=== PATIENT | male | born 1960 | race African-American/Black ===

== ENCOUNTER → 2019-01-20 | Outpatient (CLI) | payer MEDICAID, SELFPAY ==
[2019-01-20 09:59] VITALS: BMI 40.0
--- NOTE | 2019-01-20 10:05 | RAD_ITS ---
STUDY: X-RAY CHEST REASON FOR EXAM: Male, 58 years old. Cough. Recent bronchitis. TECHNIQUE: PA and lateral views of the chest. COMPARISON: None. FINDINGS: The lungs are clear and expanded. There is no demonstrated pleural abnormality. Normal size heart. Normal mediastinum and saji. Normal visualized pulmonary arteries. Normal visualized aortic arch and descending thoracic aorta. There are mild degenerative changes of the visualized thoracic spine. Normal visualized ribs, clavicles, and shoulders. There is no demonstrated abnormality of the visualized soft tissue structures of the upper abdomen. RAD/Chest PA and Lateral IMPRESSION: Normal x-ray examination of the chest. Electronically Signed: Stefan Deal, at 10:40 EDT , Service support ,
== END | disposition home or self-care (01) ==
PROVIDERS: Family Provider Family Medicine; PCP Family Medicine; Referring Provider Physician Assistant Surgical; Visit Provider Physician Assistant Surgical
DX: J02.9 Acute pharyngitis, unspecified (principal); J45.901 Unspecified asthma with (acute) exacerbation; J40 Bronchitis, not specified as acute or chronic
CPT/HCPCS: 71046; 87081

== ENCOUNTER 2021-11-13 12:42 | Emergency (ER) | payer MEDICAID, SELFPAY ==
[2021-11-13 12:43] VITALS: BP 162/82; PULSE 65; RESP 21; TEMP 36.2; O2SAT 99; BMI 39.2
--- NOTE | 2021-11-13 13:18 | EKG12_ITS ---
Test Reason : Blood Pressure : / mmHG Vent. Rate : 057 BPM Atrial Rate : 057 BPM P-R Int : 156 ms QRS Dur : 096 ms QT Int : 426 ms P-R-T Axes : 034 057 037 degrees QTc Int : 414 ms Sinus bradycardia with sinus arrhythmia Otherwise normal ECG Confirmed by ONI LINN, HARISH ([id number]), tape editor JOHANN THORNTON ([id number]) on 11/15/2021 10:38:03 AM Referred By: JEANNA Confirmed By:HARISH BUNN MD
--- NOTE | 2021-11-13 13:18 | RAD_ITS ---
STUDY: X-RAY CHEST REASON FOR EXAM: Male, 61 years old. chest pain TECHNIQUE: Single AP portable view of the chest. COMPARISON: 01/20/2019 FINDINGS: The lungs are clear and expanded. There is no demonstrated pleural abnormality. Normal size heart. Normal mediastinum and saji. Normal visualized pulmonary arteries. Normal visualized aortic arch and descending thoracic aorta. Normal visualized thoracic spine. Normal visualized ribs, clavicles, and shoulders. There is no demonstrated abnormality of the visualized soft tissue structures of the upper abdomen. RAD/Chest 1 View (Portable) IMPRESSION: Normal x-ray examination of the chest. Electronically Signed: Avi Crain MD at 14:31 EDT ,
[2021-11-13] MEDS: Aspirin 81 MG TAB.CHEW 324 MG PO (13:26)
[2021-11-13 13:32] VITALS: BP 123/98; PULSE 63
[2021-11-13] MEDS: Nitroglycerin SL (ED/IMG/CATH) 0.4 MG TABLET SL (13:32)
--- NOTE | 2021-11-13 13:33 | ED.RN ---
PT ACCIDENTALLY DROPPED 4 BABY ASA ON FLOOR. 4 NEW ASA PULLED AND GIVEN.
[2021-11-13 13:40] LABS: Absolute Lymphocyte Count 2.92 X10^3/uL (0.83-4.51); Absolute Neutrophil Count 2.4 X10^3/uL (2.0-7.7); Basophil# 0.03 X10^3/uL; Basophil% 0.5 % (0-1); Eosinophil# 0.06 X10^3/uL; Hematocrit 45.3 % (40-54); Lymphocyte # 2.92 X10^3/ul (0.83-4.51); Lymphocyte % 48.5 % (19-41); Mean Corp Hgb Conc 35.3 g/dL (32-36); Mean Corpuscular Hgb 30.7 pg (27.0-32.0); Mean Corpuscular Volume 86.8 fL (80-94); Mean Platelet Vol. 9.9 fl (6.2-12.0); Monocyte# 0.56 X10^3/uL; Monocyte% 9.3 % (0-10); NRBC Flagged by Analyzer 0 % (0-5); Neutrophil # 2.44 X10^3/uL (2.7-7.7); Neutrophil % 40.5 % (47-70); Platelet Count 206 K/mm3 (150-450); RBC Distribution Width CV 14.9 % (11.6-14.6); RBC Distribution Width SD 47.7 fl (35.1-43.9); Red Blood Count 5.22 M/mm3 (4.6-6.2)
[2021-11-13 14:00] LABS: Anion Gap 3 (5-15); BUN 12 mg/dL (7-18); BUN/Creat Ratio 11.2 RATIO (10-20); Calcium,Total 9.3 mg/dL (8.5-10.1); Chloride 107 mmol/L (98-107); Creatinine, Serum 1.07 mg/dL (0.70-1.30); EST Glomerular Filtration Rate 75 mL/min (>60); Est Glom Filt Rate - Afr Amer 91 mL/min (>60); Estimated Creatinine Clearance 67.08 ml/min; Glucose 82 mg/dL (74-106); Sodium Level 142 mmol/L (136-145); Troponin-I HS < 3 pg/mL (3.0-78.0)
[2021-11-13 14:13] VITALS: BP 122/95; PULSE 60; RESP 15; O2SAT 100
[2021-11-13] MEDS: Potassium Chloride Oral Tablet 20 MEQ 40 MEQ PO (14:38)
--- NOTE | 2021-11-13 14:48 | ED.VIS.CHEST ---
HPI History of Present Illness Chief Complaint: Chest Pain Informant: patient Onset/Context/Timing Onset: Days (2) Activity at onset: sudden Timing: Intermittent (Constant since this morning) Quality: Positive for Stabbing Location: Left Parasternal Worsened By: Movement of Torso Relieved By: Nothing Associated Symptoms: Positive for Palpitations; Negative for Nausea, Vomiting, Diaphoresis, Dyspnea, Cough, Fever, Lightheadedness and Acid Reflux Narrative Narrative: Patient presents with chest pain that began 2 days ago. Patient states it has been intermittent. Patient states it has been constant since this morning. Patient states the pain is over the left chest area. Patient describes it as stabbing. Patient states it is worse with certain movements. Patient admits to some palpitations. Patient denies any nausea or vomiting. Patient denies any shortness of breath. Patient denies any diaphoresis. Patient states nothing seems to help with his pain. CVD Risk Factors: Positive for Hypertension, Diabetes and Smoking; Negative for Hypercholesterolemia and Family History 1' </=55 PE Risk Factors: Negative for Recent Travel/Surgery, Recent Immobilization, Prior DVT or PE, Cancer and OCP + Smoking + >/=35 [facility] Medical History (Updated 11/13/21 @ 14:[address] Francisco Javier Villa, DO) Arthritis Asthma COPD (chronic obstructive pulmonary disease) Hypertension Pre-diabetes SOB (shortness of breath) Home Medications budesonide-formoterol 2 puff INHALATION BID 04/19/16 [History Last Taken Unknown] tiotropium bromide 1 puff INHALATION DAILY 04/19/16 [History Last Taken Unknown] albuterol sulfate 2.5 mg CONTINUOUS NEBULIZATION ONCE #1 ml 01/09/19 [Clinic Last Taken Unknown] albuterol sulfate 90 mcg/actuation aerosol inhaler 2 puff INHALATION Q6H PRN 01/09/19 [History Last Taken Unknown] amlodipine 5 mg tablet 5 mg PO DAILY 01/09/19 [History Last Taken Unknown] hydrochlorothiazide 25 mg tablet 25 mg PO DAILY 01/09/19 [History Last Taken Unknown] ibuprofen 800 mg tablet 800 mg PO Q6H PRN 01/09/19 [History Last Taken Unknown] metformin 500 mg tablet 500 mg PO BID 01/09/19 [History Last Taken Unknown] sertraline 50 mg tablet 50 mg PO DAILY 01/09/19 [History Last Taken Unknown] azithromycin 250 mg tablet See Rx Instructions PO .COMPLEX #6 tab 01/20/19 [Rx Last Taken Unknown] amoxicillin 500 mg tablet 500 mg PO BID #20 tab 03/12/21 [Rx Last Taken Unknown] Allergy/AdvReac Type Severity Reaction Status Date / Time No Known Allergies Allergy Verified 11/13/21 12:45 Family History Father Bone cancer Mother Arthritis Other Diabetes Hypertension Surgical History History of carpal tunnel release Social History Smoking Status: Current every day smoker tobacco type: cigarettes ROS ROS ED Constitutional Constitutional ED: Denies chills or fever(s) Eyes Eyes: Denies blurry vision or change in vision ENT ENT ED: Denies rhinorrhea or sore throat Cardiovascular Cardiovascular: Reports chest pain and palpitations Respiratory/Chest Respiratory/Chest: Denies cough or dyspnea Gastrointestinal Gastrointestinal: Denies abdominal pain or vomiting Genitourinary Genitourinary ED: Denies dysuria or hematuria Musculoskeletal Musculoskeletal: Reports back pain and neck pain Integumentary Denies abscess or rash Neurologic Neurologic: Denies headache(s) or weakness Allergic/Immunologic Allergic/Immunologic ED: Denies mouth swelling or urticaria EXAM Physical Exam Const Vital Signs: 11/13/21 12:43 11/13/21 12:46 11/13/21 13:32 Temperature 97.2 F L Temperature Source Temporal Pulse Rate 65 63 Respiratory Rate 21 H Respiratory Effort Normal Non-Labored Blood Pressure 162/82 H 123/98 H Blood Pressure Mean 108 Pulse Ox 99 Oxygen Delivery Method Room Air 11/13/21 14:13 Temperature Temperature Source Pulse Rate 60 Respiratory Rate 15 Respiratory Effort Blood Pressure 122/95 H Blood Pressure Mean 104 Pulse Ox 100 Oxygen Delivery Method Room Air Positive well nourished, well developed and obese General Appearance ED: well developed and NAD Nutritional Appearance: obese HEENT normocephalic and atraumatic Eyes PERRL and EOMs intact bilaterally Neck supple and no JVD Chest Wall palpation of chest normal Resp normal respiratory effort and clear to auscultation bilaterally Effort and Inspection: Negative for respiratory distress Cardio regular rate, regular rhythm and no murmurs GI normal to inspection, nondistended, normoactive bowel sounds, soft to palpation, non-tender and non-distended Extremity normal to inspection General Extremety ED: Negative for edema or tenderness General Extremity: Negative for edema Neuro oriented x3, CN's II-XII intact bilaterally and no sensory deficits noted Sensorium / Orientation: awake and alert Motor Exam: strength 5/5 throughout Psych mental status grossly normal Heart Score History: Slightly/Non-Suspicious ECG: Normal Age: >45 - <65 years Risk Factors: >/= 3 Risk Factors or History of CAD Troponin: </= Normal Limit Score: 3 MDM MDM MDM Narrative Medical decision making narrative: Patient was given aspirin here. EKG was obtained. On my interpretation, it showed a normal sinus rhythm with a rate of 57. [place] interval, QRS interval, and QTc intervals were all normal. [place] was normal. There are no acute ST or T wave changes. Portable 1 view chest x-ray was obtained. On my interpretation, lung yi are clear. There is normal cardiac silhouette. Bony thorax is normal. There is no acute process noted. Radiologist also interpreted the x-ray and agrees. Clear. CBC was within normal limits. Basic metabolic profile shows a mild hypokalemia of 3.0. Patient was given a dose of potassium here. High-sensitivity troponin was normal. Patient has a HEART score of 3. Patient was advised that this is low risk for acute cardiac event. Patient was instructed to follow-up with his primary care physician in 3 to 5 days for further evaluation. Patient understood and was agreeable with the plan. All questions were answered. Lab Data Attestation: I reviewed the patient's lab results. Labs: Laboratory Results - last 24 hr 11/13/21 11/13/21 12:45 12:45 WBC 6.0 RBC 5.22 Hgb 16.0 Hct 45.3 MCV 86.8 MCH 30.7 MCHC 35.3 RDW Std Deviation 47.7 H RDW Coeff of Rod 14.9 H Plt Count 206 MPV 9.9 Immature Gran % (Auto) 0.200 Neut % (Auto) 40.5 L Lymph % (Auto) 48.5 H Lewis % (Auto) 9.3 Eos % (Auto) 1.0 Baso % (Auto) 0.5 Absolute Neuts (auto) 2.4 Absolute Lymphs (auto) 2.92 Nucleated RBC % 0 Sodium 142 Potassium 3.0 L Chloride 107 Carbon Dioxide 32.0 Anion Gap 3 L BUN 12 Creatinine 1.07 Estim Creat Clear Calc 67.08 Est GFR (MDRD) Af Amer 91 Est GFR (MDRD) Non-Af 75 BUN/Creatinine Ratio 11.2 Glucose 82 Calcium 9.3 Troponin I High Sens < 3 L Radiography Chest X-Ray - ED: 1 View, Read by ED Physician, Read by Radiologist and No Acute Disease Diagnostic Testing: Clinical Impression(s) from Imaging Studies Chest X-Ray 11/13/21 13:18 IMPRESSION: Normal x-ray examination of the chest. Electronically Signed: Avi Crain MD at 14:31 EDT , EKG Initial EKG: Attestation: I personally reviewed and interpreted this EKG as follows: Interpretation: No Acute Injury Pattern and Sinus Bradycardia (57) Discharge Plan Triage Chief Complaint: Chest Pain ED Provider: Francisco Javier Villa Dx/Rx/DC Orders Clinical Impression: Chest pain of uncertain etiology, Hypokalemia Instructions: ED Chest Pain, Uncertain Cause Prescriptions: No Action albuterol sulfate 2.5 mg /3 mL (0.083 %) solution for nebulization 2.5 mg continuous nebulization ONCE Qty: 1 RF: 0 amlodipine 5 mg tablet 5 mg PO DAILY RF: 0 hydrochlorothiazide 25 mg tablet 25 mg PO DAILY RF: 0 albuterol sulfate 90 mcg/actuation HFA aerosol inhaler 2 puff INHALATION Q6H PRNRF: 0 metformin 500 mg tablet 500 mg PO BID RF: 0 ibuprofen 800 mg tablet 800 mg PO Q6H PRNRF: 0 sertraline [Zoloft] 50 mg tablet 50 mg PO DAILY RF: 0 azithromycin 250 mg tablet See Rx Instructions PO .COMPLEX Qty: 6 RF: 0 amoxicillin 500 mg tablet 500 mg PO BID Qty: 20 RF: 0 tiotropium bromide 1 PUFF inhaler 1 puff inhalation DAILY RF: 0 budesonide-formoterol 1 INHALER inhaler 2 puff inhalation BID RF: 0 Primary Care Provider: Tanja Terry Referrals: Tanja Terry MD [Primary Care Provider] - 3-5 Days Disposition Disposition: Home, Self Care
[2021-11-13 15:01] VITALS: BP 147/83; PULSE 51; RESP 16; O2SAT 100
== END 2021-11-13 15:07 | disposition home or self-care (01) ==
PROVIDERS: Emergency Provider Emergency Medicine; PCP Internal Medicine; Visit Provider Emergency Medicine
DX: R07.9 Chest pain, unspecified (principal); J44.9 Chronic obstructive pulmonary disease, unspecified; I10 Essential (primary) hypertension; E87.6 Hypokalemia; F17.210 Nicotine dependence, cigarettes, uncomplicated; M19.90 Unspecified osteoarthritis, unspecified site; Z79.899 Other long term (current) drug therapy; R73.03 Prediabetes; Z79.84 Long term (current) use of oral hypoglycemic drugs; E66.9 Obesity, unspecified; Z68.39 Body mass index [BMI] 39.0-39.9, adult
CPT/HCPCS: 71045; 80048; 84484; 85025; 93005; 99285